=== PATIENT | male | born 1930 | race African-American/Black ===

== ENCOUNTER 2016-12-05 03:44 | Inpatient (IN) | payer MEDICARE, BC ==
[~2016-12-05] VITALS: Ht 167.6 cm; Wt 85.3 kg
[~2016-12-05 03:44] MED LIST: ACET160S GT; ACID1PAC; AMLO10TA4; ASCO-339; ASPI-864 GT; BISA10SU66; CHLO473M3 PO; CRAN405C; DUONEBS INH; FAMO20TA8 GT; FOLI-43; FURO-152 GT; HEPARIN SQ; HYDR-4134; LOPE2CAP; LORA1TAB GT; MAGN400C GT; MAGN400O4; METO10TA3; MULT-348; ONDA4TAB5; PHEN100C12 GT; PRED5TAB48 GT; PRO STAT; PROT40; THEO200T37 GT; VITA1TAB
[2016-12-05 04:28] LABS: HEMATOCRIT. 38.7 % (42.0-52.0); HEMOGLOBIN. 12.9 g/dL (14.0-18.0); MEAN CORPUSCULAR HEMOGLOBIN 32.6 pg (28.0-32.0); MEAN CORPUSCULAR HGB CONC 33.4 g/dL (31.0-37.0); MEAN CORPUSCULAR VOLUME 97.7 fL (80.0-94.0); MEAN PLATELET VOLUME 9.3 fl (7.4-10.4); PLATELET 251 x1000/uL (130-400); RED BLOOD CELL COUNT 3.96 mill/uL (4.7-6.1); RED CELL DISTRIBUTION WIDTH 14.3 % (11.6-14.6); WHITE BLOOD COUNT 8.4 x1000/uL (4.5-11.0)
[2016-12-05 04:31] LABS: CHLORIDE 102 mEq/L (98-107); DIFFERENTIAL COMMENT 1; INDEX HEMOLYSI 1 (1-3); INDEX ICTERIC 1 (1-4); INDEX LIPEMIC 1 (1-3)
[2016-12-05 04:39] LABS: ALANINE AMINOTRANSFERASE 59 IU/L (13-61); ALBUMIN 3.4 g/dL (3.4-5.0); ANION GAP 12; CARBON DIOXIDE 30 mEq/L (21-32); UREA NITROGEN BLOOD 61 mg/dL (7-21); eGFR > 60 mL/min (>60)
[2016-12-05 04:44] LABS: CALCIUM 9.8 mg/dL (8.5-10.1)
[2016-12-05 05:02] LABS: PLATELET ESTIMATE NORMAL
[2016-12-05 06:10] LABS: CLARITY URINE TURBID (CLEAR); COLOR URINE YELLOW (YELLOW); GLUCOSE URINE NEGATIVE (NEGATIVE); KETONES URINE NEGATIVE (NEGATIVE); LEUKOCYTE ESTERASE URINE 3+ (NEGATIVE); NITRITE URINE POSITIVE (NEGATIVE); OCCULT BLOOD URINE 1+ (NEGATIVE); PROTEIN URINE 2+ (NEGATIVE); SPECIFIC GRAVITY URINE 1.015 (1.005-1.030); UROBILINOGEN URINE 0.2 E.U./dL (0.2-1.0)
[2016-12-05] MEDS ORDERED: CEFTRIAXONE 1 G PREMIX 50 ML IV ONE (06:30)
[2016-12-05 06:36] LABS: BACTERIA URINE 3+; SQUAMOUS EPITHELIAL CELL URINE FEW /lpf (RARE/1+); WBC URINE 50-100 /hpf (0-2)
[2016-12-05] MEDS ORDERED: ONDANSETRON HCL 4MG/2ML VIAL IV PRN (11:30)
[2016-12-05 13:00] VITALS: BP 139/80
[2016-12-05 14:00] VITALS: BP 109/70
[2016-12-05] MEDS: PIPERACILLIN/TAZOBACTAM 3.375 G in DEXTROSE 5% WATER 50 ML IV SCH ×2 (14:30→22:00)
[2016-12-05 16:00] VITALS: BP 128/67
[2016-12-05 16:18] LABS: BG BASE EXCESS 3.4 mmol/L (-2.0-2.0); BG CARBOXYHEMOGLOBIN 0.6 % (0.5-1.5); BG DEOXYHEMOGLOBIN 1.7 % (0.0-5.0); BG FRACTION INSPIRED OXYGEN 40; BG HCO3 ACT 28.2 mmol/L (22.0-26.0); BG METHEMOGLOBIN 0.2 % (0.0-1.5); BG OXYGEN SATURATION 98.3 % (92.0-98.5); BG OXYHEMOGLOBIN 97.5 % (94.0-97.0); BG PCO2 43.9 mmHg (35.0-45.0); BG PH 7.426 (7.350-7.450); BG PO2 110.4 mmHg (75.0-100.0); BG SAMPLE SITE RIGHT RADIAL; BG TIDAL VOLUME(mL) 500 mL; BG TOTAL HEMOGLOBIN 11.4 g/dL (12.0-18.0); BG VENT MODE VENT - A/C; BG VENT RATE 12 set
[2016-12-05 18:01] VITALS: BP 139/80
[2016-12-05 20:00] VITALS: BP 117/69
[2016-12-05] MEDS: IPRATROPIUM/ALBUTEROL 0.5-3(2.5)MG/3ML NEB HHN SCH (20:50)
[2016-12-05] MEDS: BACITRACIN/POLYMYXIN B SULFATE OINT 15GM TOP SCH (21:53)
[2016-12-05 22:00] VITALS: BP 122/76
[2016-12-06] VITALS (9 sets, daily range): BP systolic 116–165; BP diastolic 67–85
[2016-12-06] MEDS: IPRATROPIUM/ALBUTEROL 0.5-3(2.5)MG/3ML NEB HHN SCH ×3 (01:26→13:55)
[2016-12-06] MEDS: PIPERACILLIN/TAZOBACTAM 3.375 G in DEXTROSE 5% WATER 50 ML IV SCH ×2 (06:00→12:51)
[2016-12-06 06:37] LABS: BASOPHILS % 0.3 % (0.0-2.0); EOSINOPHILS % 5.2 % (0.0-5.0); HEMATOCRIT. 34.3 % (42.0-52.0); HEMOGLOBIN. 11.5 g/dL (14.0-18.0); LYMPHOCYTES % 23.9 % (20.0-50.0); MEAN CORPUSCULAR HEMOGLOBIN 32.5 pg (28.0-32.0); MEAN CORPUSCULAR HGB CONC 33.5 g/dL (31.0-37.0); MEAN CORPUSCULAR VOLUME 96.9 fL (80.0-94.0); MEAN PLATELET VOLUME 9.5 fl (7.4-10.4); NEUTROPHILS % 63.6 % (40.0-76.0); PLATELET 244 x1000/uL (130-400); RED BLOOD CELL COUNT 3.54 mill/uL (4.7-6.1); RED CELL DISTRIBUTION WIDTH 14.4 % (11.6-14.6); WHITE BLOOD COUNT 7.9 x1000/uL (4.5-11.0)
[2016-12-06 07:15] LABS: ANION GAP 13; CALCIUM 9.3 mg/dL (8.5-10.1); CARBON DIOXIDE 28 mEq/L (21-32); CHLORIDE 106 mEq/L (98-107); INDEX HEMOLYSI 1 (1-3); INDEX ICTERIC 1 (1-4); INDEX LIPEMIC 1 (1-3); UREA NITROGEN BLOOD 63 mg/dL (7-21); eGFR > 60 mL/min (>60)
[2016-12-06] MEDS ORDERED: LORAZEPAM 1MG TABLET GT SCH (08:00)
[2016-12-06] MEDS ORDERED: ACETAMINOPHEN 160 MG/5 ML UD CUP GT PRN (08:00)
[2016-12-06] MEDS ORDERED: ACETAMINOPHEN 650MG/20.3ML UDC GT PRN (08:45)
[2016-12-06] MEDS ORDERED: FUROSEMIDE 20MG TABLET GT SCH (09:00)
[2016-12-06] MEDS ORDERED: PANTOPRAZOLE 40MG DR TABLET PO SCH (09:00)
[2016-12-06] MEDS ORDERED: ASPIRIN 81MG TABLET GT SCH (09:00)
[2016-12-06] MEDS ORDERED: AMLODIPINE 10MG TABLET GT SCH (09:00)
[2016-12-06] MEDS ORDERED: FOLIC ACID 1MG TABLET GT SCH (09:00)
[2016-12-06] MEDS ORDERED: FAMOTIDINE 20MG TABLET GT SCH (09:00)
[2016-12-06] MEDS ORDERED: HYDRALAZINE HCL 25MG TABLET GT SCH (09:00)
[2016-12-06] MEDS ORDERED: ONDANSETRON HCL 4MG TABLET GT SCH (09:00)
[2016-12-06] MEDS ORDERED: ASPIRIN 81MG EC TABLET PO SCH (09:00)
[2016-12-06] MEDS ORDERED: METOCLOPRAMIDE HCL 10MG TABLET GT SCH (09:00)
[2016-12-06] MEDS ORDERED: AMLODIPINE 5MG TABLET GT SCH (09:00)
[2016-12-06] MEDS: BACITRACIN/POLYMYXIN B SULFATE OINT 15GM TOP SCH (09:36)
[2016-12-06] MEDS ORDERED: PHENYTOIN SODIUM EXTENDED 100MG CAPSULE PO SCH (21:00)
== END 2016-12-06 20:30 | DRG 698 ==
LOC: ER 03:58 → 5EST 10:30
PROVIDERS: ADMIT Family Medicine Adult Medicine; ATTEND Family Medicine Adult Medicine
PROC: 5A1945Z Respiratory Ventilation, 24-96 Consecutive Hours (ICD-10-PCS; principal; 2016-12-05)
PROC: 0T2BX0Z Change Drainage Device in Bladder, External Approach (ICD-10-PCS; 2016-12-05)
DX: T83.518A Infection and inflammatory reaction due to other urinary catheter, initial encounter (principal); A40.9 Streptococcal sepsis, unspecified; G93.40 Encephalopathy, unspecified; N39.0 Urinary tract infection, site not specified; J96.10 Chronic respiratory failure, unspecified whether with hypoxia or hypercapnia; Z99.11 Dependence on respirator [ventilator] status; F03.90 Unspecified dementia, unspecified severity, without behavioral disturbance, psychotic disturbance, mood disturbance, and anxiety; Y83.8 Other surgical procedures as the cause of abnormal reaction of the patient, or of later complication, without mention of misadventure at the time of the procedure; J44.9 Chronic obstructive pulmonary disease, unspecified; I10 Essential (primary) hypertension; E11.9 Type 2 diabetes mellitus without complications; K21.9 Gastro-esophageal reflux disease without esophagitis; N31.9 Neuromuscular dysfunction of bladder, unspecified; N40.0 Benign prostatic hyperplasia without lower urinary tract symptoms; Z86.73 Personal history of transient ischemic attack (TIA), and cerebral infarction without residual deficits; Z93.0 Tracheostomy status; Z93.1 Gastrostomy status; Z79.899 Other long term (current) drug therapy; Z79.82 Long term (current) use of aspirin; Y92.89 Other specified places as the place of occurrence of the external cause
CPT/HCPCS: 36415; 36600; 71010; 80048; 80053; 81001; 82375; 82805; 85025; 87040; 87077; 87086; 87186; 93306; 93308; 94002; 94003; 94640; 96365; 99285; A6261; J0696; J2543; J7050; J7060; J7620; A4315

== ENCOUNTER 2017-05-03 13:18 | Inpatient (IN) | payer MEDICARE, BC, MEDICAID ==
[~2017-05-03] VITALS: Ht 175.3 cm; Wt 88.6 kg
[2017-05-03] VITALS: BP 166/82
[~2017-05-03 13:18] MED LIST changes: -MAGN400O4; +MOM; +THEO200T17 GT; -THEO200T37 GT
[2017-05-03 14:28] LABS: BASOPHILS % 0.3 % (0.0-2.0); EOSINOPHILS % 2.5 % (0.0-5.0); HEMATOCRIT. 30.7 % (42.0-52.0); HEMOGLOBIN. 9.9 g/dL (14.0-18.0); LYMPHOCYTES % 13.4 % (20.0-50.0); MEAN CORPUSCULAR HEMOGLOBIN 30.2 pg (28.0-32.0); MEAN CORPUSCULAR VOLUME 93.5 fL (80.0-94.0); MEAN PLATELET VOLUME 9.7 fl (7.4-10.4); MONOCYTES % 6.9 % (2.0-8.0); NEUTROPHILS % 76.9 % (40.0-76.0); PLATELET 287 x1000/uL (130-400); RED BLOOD CELL COUNT 3.28 mill/uL (4.7-6.1); RED CELL DISTRIBUTION WIDTH 14.8 % (11.6-14.6)
[2017-05-03 14:30] LABS: CHLORIDE 100 mEq/L (98-107); INR 1.1; PROTHROMBIN TIME 11.2 sec (9.4-11.6)
[2017-05-03 14:38] LABS: CARBON DIOXIDE 25 mEq/L (21-32)
[2017-05-03 15:24] LABS: CLARITY URINE CLOUDY (CLEAR); COLOR URINE YELLOW (YELLOW); GLUCOSE URINE NEGATIVE (NEGATIVE); KETONES URINE NEGATIVE (NEGATIVE); LEUKOCYTE ESTERASE URINE 3+ (NEGATIVE); NITRITE URINE NEGATIVE (NEGATIVE); OCCULT BLOOD URINE 3+ (NEGATIVE); PROTEIN URINE 2+ (NEGATIVE); SPECIFIC GRAVITY URINE 1.016 (1.005-1.030); UROBILINOGEN URINE 0.2 E.U./dL (0.2-1.0)
[2017-05-03] MEDS ORDERED: PIPERACILLIN/TAZ 3.375G PREMIX 50 ML IV ONE (15:30)
[2017-05-03] MEDS ORDERED: SODIUM CHLORIDE 0.9% 1,000 ML IV ONE (15:31)
[2017-05-03 18:10] VITALS: BP 145/51
[2017-05-03] MEDS ORDERED: ZOSYN XX SCH (19:15)
[2017-05-03] MEDS: SODIUM CHLORIDE 0.9% 1,000 ML IV SCH (19:30)
[2017-05-03] MEDS ORDERED: IPRATROPIUM/ALBUTEROL 0.5-3(2.5)MG/3ML NEB HHN PRN (19:45)
[2017-05-03 20:00] VITALS: BP 65/15
[2017-05-03] MEDS ORDERED: DEXTROSE 50% WATER 50ML SYRINGE IV PRN ×2 (21:45→22:00)
[2017-05-03 22:00] VITALS: BP 176/98
[2017-05-03] MEDS: PIPERACILLIN/TAZ 3.375G PREMIX 50 ML IV SCH (22:18)
[2017-05-03] MEDS ORDERED: LOPERAMIDE 2 MG/10 ML UDC GT PRN (22:45)
[2017-05-03] MEDS ORDERED: LORAZEPAM 1MG TABLET PO PRN (22:45)
[2017-05-03] MEDS ORDERED: BISACODYL 10MG SUPP PR PRN (22:45)
[2017-05-03] MEDS ORDERED: MAGNESIUM HYDROXIDE 400MG/5ML 30ML UDC GT PRN (22:45)
[2017-05-03] MEDS ORDERED: ONDANSETRON HCL 4MG/2ML VIAL IV PRN (23:00)
[2017-05-03] MEDS: AMLODIPINE 10MG TABLET GT SCH (23:15)
[2017-05-03] MEDS: PHENYTOIN SODIUM EXTENDED 100MG CAPSULE PO SCH (23:53)
[2017-05-04] VITALS (11 sets, daily range): BP systolic 96–162; BP diastolic 46–86
[2017-05-04] MEDS: SODIUM CHLORIDE 0.9% 1,000 ML IV SCH ×2 (00:30→09:30)
[2017-05-04] MEDS: BLOOD SUGAR DIAGNOSTIC STRIP TEST SCH ×4 (00:40→18:00)
[2017-05-04] MEDS: PIPERACILLIN/TAZ 3.375G PREMIX 50 ML IV SCH ×4 (03:55→22:18)
[2017-05-04] MEDS: THEOPHYLLINE ANHYDROUS 80 MG/15 ML 120ML GT SCH ×3 (05:51→22:20)
[2017-05-04 07:11] LABS: BASOPHILS % 0.3 % (0.0-2.0); EOSINOPHILS % 4.3 % (0.0-5.0); HEMOGLOBIN. 9.3 g/dL (14.0-18.0); LYMPHOCYTES % 18.4 % (20.0-50.0); MEAN CORPUSCULAR HEMOGLOBIN 30.6 pg (28.0-32.0); MEAN CORPUSCULAR VOLUME 94.9 fL (80.0-94.0); MEAN PLATELET VOLUME 10.1 fl (7.4-10.4); MONOCYTES % 7.7 % (2.0-8.0); NEUTROPHILS % 69.3 % (40.0-76.0); PLATELET 268 x1000/uL (130-400); RED BLOOD CELL COUNT 3.05 mill/uL (4.7-6.1); RED CELL DISTRIBUTION WIDTH 14.8 % (11.6-14.6)
[2017-05-04] MEDS ORDERED: BLOOD SUGAR DIAGNOSTIC STRIP TEST SCH (07:30)
[2017-05-04] MEDS: IPRATROPIUM/ALBUTEROL 0.5-3(2.5)MG/3ML NEB HHN SCH ×3 (07:49→20:11)
[2017-05-04 07:50] LABS: CARBON DIOXIDE 23 mEq/L (21-32); CHLORIDE 106 mEq/L (98-107)
[2017-05-04] MEDS ORDERED: INSULIN LISPRO 100 UNITS/ML SUBCUT SCH (08:00)
[2017-05-04] MEDS: MAGNESIUM OXIDE 400MG TABLET GT SCH ×2 (09:30→18:00)
[2017-05-04] MEDS: ASPIRIN 81MG TABLET GT SCH (09:30)
[2017-05-04] MEDS: MULTIVITAMINS,THER W-MINERALS TABLET PO SCH (09:30)
[2017-05-04] MEDS: FOLIC ACID 1MG TABLET GT SCH (09:30)
[2017-05-04] MEDS: AMLODIPINE 10MG TABLET GT SCH (09:31)
[2017-05-04] MEDS: HYDRALAZINE HCL 25MG TABLET GT SCH ×3 (09:31→18:00)
[2017-05-04] MEDS: PREDNISONE 5MG TABLET GT SCH (09:31)
[2017-05-04] MEDS: ASCORBIC ACID 500 MG TABLET GT SCH (09:31)
[2017-05-04] MEDS: METOCLOPRAMIDE HCL 10MG TABLET PO SCH (09:31)
[2017-05-04] MEDS: PANTOPRAZOLE SODIUM 40 MG/VIAL IV SCH (09:32)
[2017-05-04] MEDS: ATROPINE SULFATE 1MG/10ML SYR IV PRN (09:32)
[2017-05-04] MEDS ORDERED: INFLUENZA VIRUS VACCINE 0.5ML SYR IM ONE (10:00)
[2017-05-04] MEDS ORDERED: SODIUM POLYSTYRENE SULFONATE 15 G/60 ML BOT GT SCH (11:15)
[2017-05-04] MEDS: INSULIN LISPRO 100 UNITS/ML SUBCUT SCH ×3 (12:00→18:00)
[2017-05-04] MEDS: ENOXAPARIN 40MG/0.4ML SYR SUBCUT SCH (14:48)
[2017-05-04 15:01] LABS: GLUCOSE URINE NEGATIVE (NEGATIVE); KETONES URINE TRACE (NEGATIVE); LEUKOCYTE ESTERASE URINE 3+ (NEGATIVE); NITRITE URINE NEGATIVE (NEGATIVE); OCCULT BLOOD URINE 3+ (NEGATIVE); PROTEIN URINE 2+ (NEGATIVE); SPECIFIC GRAVITY URINE 1.018 (1.005-1.030); UROBILINOGEN URINE 0.2 E.U./dL (0.2-1.0)
[2017-05-04 15:02] LABS: CLARITY URINE CLOUDY (CLEAR); COLOR URINE BLOODY (YELLOW)
[2017-05-04] MEDS: PHENYTOIN SODIUM EXTENDED 100MG CAPSULE PO SCH (21:14)
[2017-05-05] VITALS (10 sets, daily range): BP systolic 116–172; BP diastolic 36–61
[2017-05-05] MEDS: IPRATROPIUM/ALBUTEROL 0.5-3(2.5)MG/3ML NEB HHN SCH ×5 (00:30→20:25)
[2017-05-05] MEDS: BLOOD SUGAR DIAGNOSTIC STRIP TEST SCH ×4 (00:45→17:52)
[2017-05-05] MEDS: PIPERACILLIN/TAZ 3.375G PREMIX 50 ML IV SCH ×4 (03:56→21:24)
[2017-05-05] MEDS: INSULIN LISPRO 100 UNITS/ML SUBCUT SCH ×4 (06:00→17:52)
[2017-05-05] MEDS: THEOPHYLLINE ANHYDROUS 80 MG/15 ML 120ML GT SCH ×3 (06:21→21:23)
[2017-05-05 06:53] LABS: BASOPHILS % 0.5 % (0.0-2.0); EOSINOPHILS % 5.8 % (0.0-5.0); HEMATOCRIT. 28.3 % (42.0-52.0); HEMOGLOBIN. 9.1 g/dL (14.0-18.0); MEAN CORPUSCULAR VOLUME 95.8 fL (80.0-94.0); MONOCYTES % 7.8 % (2.0-8.0); NEUTROPHILS % 68.9 % (40.0-76.0); PLATELET 265 x1000/uL (130-400); RED BLOOD CELL COUNT 2.95 mill/uL (4.7-6.1); RED CELL DISTRIBUTION WIDTH 14.5 % (11.6-14.6)
[2017-05-05 07:17] LABS: CARBON DIOXIDE 22 mEq/L (21-32); CHLORIDE 109 mEq/L (98-107)
[2017-05-05] MEDS: ASCORBIC ACID 500 MG TABLET GT SCH (10:03)
[2017-05-05] MEDS: HYDRALAZINE HCL 25MG TABLET GT SCH ×3 (10:04→18:03)
[2017-05-05] MEDS: AMLODIPINE 10MG TABLET GT SCH (10:04)
[2017-05-05] MEDS: MAGNESIUM OXIDE 400MG TABLET GT SCH ×2 (10:04→18:03)
[2017-05-05] MEDS: FOLIC ACID 1MG TABLET GT SCH (10:04)
[2017-05-05] MEDS: MULTIVITAMINS,THER W-MINERALS TABLET PO SCH (10:04)
[2017-05-05] MEDS: ASPIRIN 81MG TABLET GT SCH (10:05)
[2017-05-05] MEDS: ENOXAPARIN 40MG/0.4ML SYR SUBCUT SCH (10:05)
[2017-05-05] MEDS: PREDNISONE 5MG TABLET GT SCH (10:05)
[2017-05-05] MEDS: PANTOPRAZOLE SODIUM 40 MG/VIAL IV SCH (10:05)
[2017-05-05] MEDS: METOCLOPRAMIDE HCL 10MG TABLET PO SCH (10:06)
[2017-05-05] MEDS: ATROPINE SULFATE 1MG/10ML SYR IV PRN (10:48)
[2017-05-05] MEDS: PHENYTOIN SODIUM EXTENDED 100MG CAPSULE PO SCH (21:24)
[2017-05-06] VITALS (9 sets, daily range): BP systolic 129–150; BP diastolic 37–68
[2017-05-06] MEDS: IPRATROPIUM/ALBUTEROL 0.5-3(2.5)MG/3ML NEB HHN SCH ×3 (03:06→12:15)
[2017-05-06] MEDS: PIPERACILLIN/TAZ 3.375G PREMIX 50 ML IV SCH ×2 (03:55→10:00)
[2017-05-06] MEDS: INSULIN LISPRO 100 UNITS/ML SUBCUT SCH ×4 (06:00→17:19)
[2017-05-06] MEDS: THEOPHYLLINE ANHYDROUS 80 MG/15 ML 120ML GT SCH ×2 (06:13→15:38)
[2017-05-06] MEDS: BLOOD SUGAR DIAGNOSTIC STRIP TEST SCH ×4 (06:13→17:13)
[2017-05-06 06:27] LABS: BASOPHILS % 0.5 % (0.0-2.0); EOSINOPHILS % 6.5 % (0.0-5.0); HEMATOCRIT. 29.5 % (42.0-52.0); HEMOGLOBIN. 9.4 g/dL (14.0-18.0); LYMPHOCYTES % 22.7 % (20.0-50.0); MEAN CORPUSCULAR HEMOGLOBIN 30.4 pg (28.0-32.0); MEAN CORPUSCULAR VOLUME 95.2 fL (80.0-94.0); MONOCYTES % 7.4 % (2.0-8.0); NEUTROPHILS % 62.9 % (40.0-76.0); PLATELET 268 x1000/uL (130-400); RED CELL DISTRIBUTION WIDTH 14.5 % (11.6-14.6)
[2017-05-06 07:03] LABS: CARBON DIOXIDE 26 mEq/L (21-32); CHLORIDE 111 mEq/L (98-107)
[2017-05-06] MEDS ORDERED: FAMOTIDINE 20MG/2ML VIAL IV SCH (09:00)
[2017-05-06] MEDS: ENOXAPARIN 40MG/0.4ML SYR SUBCUT SCH (12:03)
[2017-05-06] MEDS: MAGNESIUM OXIDE 400MG TABLET GT SCH ×2 (12:04→17:11)
[2017-05-06] MEDS: HYDRALAZINE HCL 25MG TABLET GT SCH ×3 (12:04→17:11)
[2017-05-06] MEDS: MULTIVITAMINS,THER W-MINERALS TABLET PO SCH (12:04)
[2017-05-06] MEDS: FOLIC ACID 1MG TABLET GT SCH (12:04)
[2017-05-06] MEDS: AMLODIPINE 10MG TABLET GT SCH (12:04)
[2017-05-06] MEDS: METOCLOPRAMIDE HCL 10MG TABLET PO SCH (12:04)
[2017-05-06] MEDS: ASCORBIC ACID 500 MG TABLET GT SCH (12:04)
[2017-05-06] MEDS: ASPIRIN 81MG TABLET GT SCH (12:05)
[2017-05-06] MEDS ORDERED: POTASSIUM CHLORIDE 20MEQ/PACKET PO NR (12:15)
[2017-05-06] MEDS ORDERED: LACTULOSE 20G/30ML UDC PO NR (12:15)
[2017-05-06] MEDS: PREDNISONE 5MG TABLET GT SCH (12:57)
== END 2017-05-06 19:53 | DRG 871 ==
LOC: ER 13:18 → 5EST 15:53 → ENRESERV 16:46
PROVIDERS: ADMIT Family Medicine Adult Medicine; ATTEND Family Medicine Adult Medicine
PROC: 5A1945Z Respiratory Ventilation, 24-96 Consecutive Hours (ICD-10-PCS; principal; 2017-05-03)
PROC: 0T9B70Z Drainage of Bladder with Drainage Device, Via Natural or Artificial Opening (ICD-10-PCS; 2017-05-03)
DX: A41.9 Sepsis, unspecified organism (principal); E43 Unspecified severe protein-calorie malnutrition; G93.41 Metabolic encephalopathy; N17.9 Acute kidney failure, unspecified; Z99.11 Dependence on respirator [ventilator] status; J96.10 Chronic respiratory failure, unspecified whether with hypoxia or hypercapnia; Z93.0 Tracheostomy status; F03.90 Unspecified dementia, unspecified severity, without behavioral disturbance, psychotic disturbance, mood disturbance, and anxiety; N39.0 Urinary tract infection, site not specified; T83.028A Displacement of other urinary catheter, initial encounter; J44.9 Chronic obstructive pulmonary disease, unspecified; Z66 Do not resuscitate; E86.0 Dehydration; E87.5 Hyperkalemia; K21.9 Gastro-esophageal reflux disease without esophagitis; E11.9 Type 2 diabetes mellitus without complications; I11.9 Hypertensive heart disease without heart failure; N31.9 Neuromuscular dysfunction of bladder, unspecified; I44.1 Atrioventricular block, second degree; N40.0 Benign prostatic hyperplasia without lower urinary tract symptoms; Z93.1 Gastrostomy status; Z79.82 Long term (current) use of aspirin; I69.320 Aphasia following cerebral infarction; Z79.899 Other long term (current) drug therapy; Z68.28 Body mass index [BMI] 28.0-28.9, adult
CPT/HCPCS: 36415; 51102; 71010; 76942; 80048; 80053; 80185; 81001; 82962; 83735; 84443; 85025; 85610; 87086; 93005; 93306; 93970; 94002; 94003; 94640; 99285; C1729; C1893; C9113; J0461; J1650; J1815; J2543; J3490; J7030; J7512; J7620; J8597